=== PATIENT | male | born 1945 | race Caucasian/White ===

== ENCOUNTER 2025-03-07 15:50 | Emergency (ER) | payer OTHER, SELFPAY ==
--- NOTE | ~2025-03-07 | CT_ITS ---
EXAMINATION: CT brain wo con DATE: 03/07/2025 18:34 INDICATION: Altered mental status TECHNIQUE: Computed tomography (CT) of the head was performed without intravenous contrast. The dose-length product was 681.00 mGy-cm. Automated exposure control and iterative reconstruction technique were employed. COMPARISON: CT dated 03/12/2008 FINDINGS: Generalized atrophy. There are scattered mild periventricular and subcortical white matter changes, most likely related to small vessel ischemic disease (microangiopathy). No acute infarction, hemorrhage, mass or mass effect. Midline sagittal images demonstrate a normal corpus callosum and craniovertebral junction. Basilar cisterns are patent. IMPRESSION: 1. No acute intracranial abnormality. Reviewed, dictated and finalized at location O. [employer]WE[employer] FINISHER
[2025-03-07 16:23] VITALS: BP 151/85; PULSE 90; RESP 20; TEMP 36.9; O2SAT 98
[2025-03-07 18:05] VITALS: BP 152/81; PULSE 89; RESP 18; O2SAT 100
--- NOTE | 2025-03-07 18:07 | ED.ALCOHOL ---
HPI - Alcohol General Chief Complaint: Alcohol Stated Complaint: pulled over by PD, +ETOH Time Seen by Provider: 03/07/25 18:07 Focused HPI: Patient is a 79-year-old male who presents the ED via EMS with report of altered mental status. Per PD/EMS, patient was pulled over for driving erratically. Patient appeared acutely intoxicated with slurred speech and had urinary incontinence. Was sent here for further evaluation. Patient reported in triage that he had been drinking [place]. He reports to me that he had two gin and tonics a day. Daughter at bedside reports patient is not behaving like his normal self. States he does not typically drink alcohol. States he has had episodes of confusion/unsteady gait in the past and has been related to his blood sugar being low. BG upon my eval 93. GENERAL: Well-appearing, well-nourished, and in no acute distress. HEAD: Normocephalic, atraumatic. CHEST: Clear to auscultation. ?No respiratory distress. HEART: Regular rate and rhythm.? NEURO: ?Alert and oriented x3. No appreciable focal deficits. Slightly unsteady gait. Speech clear. Patient screened in triage and initial orders placed.? ?Additional care and disposition to be based upon?diagnostic testing and treatment. Source: patient and family Mode of arrival: EMS Limitations: no limitations Related Data Allergies Allergy/AdvReac Type Severity Reaction Status Date / Time No Known Allergies Allergy Unknown Unverified 03/12/08 19:26 ON LICENSE OF [facility] Family History Family History (Updated 06/19/16 @ 23:56 by DOCTOR UNKNOWN) Father Hypertension Family history of congestive heart failure, Onset Age: 90 Patient's father is Mother Family history of malignant neoplasm of bone Patient's mother is Social History Social History Alcohol intake: current Course Vital Signs Vital signs: Vital Signs Temperature 98.5 F 03/07/25 16:23 Pulse Rate 90 03/07/25 16:23 Respiratory Rate 20 03/07/25 16:23 Blood Pressure 151/85 H 03/07/25 16:23 Pulse Oximetry 98 03/07/25 16:23 Temperature 98.5 F 03/07/25 16:23 Pulse Rate 70 03/07/25 20:12 Respiratory Rate 18 03/07/25 18:05 Blood Pressure 114/64 03/07/25 20:12 Pulse Oximetry 98 03/07/25 20:12 MDM MDM Narrative Medical decision making narrative: MSE by MAXWELL in triage Patient left after initial MSE in triage before further workup for care. Differential Diagnosis Differential Diagnosis: Acute alcohol intoxication, altered mental status, CVA, transient global amnesia, UTI, electrolyte derangement Lab Data Labs: Lab Results 03/07/25 Range/Units 18:05 POC Capillary Glucose 93 (65-105) mg/dl Imaging Data Radiologist's impression: ITS Impressions Head CT 03/07/25 18:37 IMPRESSION: 1. No acute intracranial abnormality. Discharge Plan Discharge Clinical Impression: Altered mental status Qualifiers: Altered mental status type: unspecified Qualified Code(s): R41.82 - Altered mental status, unspecified Patient Disposition: Elopement After Seen by Prov Patient Language: Haitian Follow-up/Referrals: Maicol Leblanc MD [Primary Care Provider, Hospitalist]
[2025-03-07 20:12] VITALS: BP 114/64; PULSE 70; O2SAT 98
--- NOTE | 2025-03-07 20:14 | PC.NURSE ---
pt refused blood draw
--- NOTE | 2025-03-07 20:41 | PC.NURSE ---
pt reports nothing is wrong with me. I do not want to be seen. I have a ride coming. pt is A+Ox4. This RN told pt to come back in needed and follow up with pcp.
== END 2025-03-07 23:54 | disposition left against medical advice (07) ==
PROVIDERS: Emergency Provider Physician Assistant; PCP Internal Medicine
DX: R41.82 Altered mental status, unspecified (principal)
CPT/HCPCS: 70450; 82948; 99199; 99284